=== PATIENT | female | born 1995 | race African-American/Black ===

== ENCOUNTER 2017-01-20 08:54 | Emergency (ER) | payer OTHER ==
[2017-01-20 09:15] VITALS: BP 120/77
[2017-01-20 09:16] LABS: BILIRUBIN,URINE SMALL (NEG); GLUCOSE,URINE NEGATIVE (NEG); NITRITE,URINE NEGATIVE (NEG); PH,URINE 5.5; PROTEIN,URINE NEGATIVE (NEG-TRACE); UROBILINOGEN,URINE 0.2 mg/dL (0.2 mg/dL)
[2017-01-20 09:45] LABS: BACTERIA,URINE 0 /HPF (0-FEW); RBC,URINE 0 /HPF (0-2); SQUAMOUS EPITHELIAL CELL,UR OCC /LPF; WBC,URINE OCC /HPF (0-4)
--- NOTE | 2017-01-20 10:25 | ED.ADGEN ---
Past Medical History Past Medical History: No Pertinent History Past Surgical History: No Surgical History Alcohol Use: None Drug Use: None Adult General Chief Complaint Chief Complaint: ABDOMINAL PAIN HPI HPI Patient is a 21 year old woman, who presents to the emergency department with a complaint of intermittent abdominal pain over the past several weeks. Patient describes it as a sharp stabbing sensation in her lower and middle abdomen, which comes and goes. Denies any nausea or vomiting, any diarrhea, any fevers or chills, any urinary complaints, any discharge or drainage of the vagina. Patient states that she stop getting her double injections about 2 years ago, and that her last menstrual period was about 2 months ago. She is concerned to be stay in the emergency department. She denies any concerns for STI exposures, any injuries, any rashes, any recent travel or surgery, any swelling extremities, or any other complaints. She has not taken any medication prior to coming to the ED. She states she is not currently experiencing any abdominal pain. Review of Systems Review of Systems Constitutional: Denies fever or chills. [] Eyes: Denies change in visual acuity. [] HENT: Denies nasal congestion or sore throat. [] Respiratory: Denies cough or shortness of breath. [] Cardiovascular: Denies chest pain or edema. [] GI: Intermittent abdominal pain, no nausea, vomiting, bloody stools or diarrhea. : Denies dysuria. [] Musculoskeletal: Denies back pain or joint pain. [] Integument: Denies rash. [] Neurologic: Denies headache, focal weakness or sensory changes. [] Endocrine: Denies polyuria or polydipsia. [] Lymphatic: Denies swollen glands. [] Psychiatric: Denies depression or anxiety. [] Allergies Allergies Allergies Coded Allergies Type Severity Reaction Last Updated Verified No Known Drug Allergies 03/04/14 No Physical Exam Physical Exam Constitutional: Well developed, well nourished, no acute distress, non-toxic appearance. [] HENT: Normocephalic, atraumatic, bilateral external ears normal, oropharynx moist, no oral exudates, nose normal. [] Eyes: PERRLA, EOMI, conjunctiva normal, no discharge. [] Neck: Normal range of motion, no tenderness, supple, no stridor. [] Cardiovascular:Heart rate regular rhythm, no murmur, S1, S2, no rubs or gallops. [] Lungs & Thorax: Bilateral breath sounds clear to auscultation, no wheezing, rhonchi, rales. No chest or crepitus or tenderness. [] Abdomen: Bowel sounds normal, soft, no tenderness, no rebound, rigidity, no guarding, no masses, no pulsatile masses. [] Skin: Warm, dry, no erythema, no rash. [] Back: No tenderness, no CVA tenderness. [] Extremities: No tenderness, no cyanosis, no clubbing, ROM intact, no edema. [] Neurologic: Alert and oriented X 3, normal motor function, normal sensory function, no focal deficits noted. [] Psychologic: Affect normal, judgement normal, mood normal. [] Current Patient Data Vital Signs Vital Signs Date Time Temp Pulse Resp B/P (MAP) Pulse Ox O2 Delivery O2 Flow Rate FiO2 01/20/17 09:15 98.5 99 16 120/77 (91) 99 Room Air 98.5 Lab Values Laboratory Tests Test 01/20/17 09:07 Urine Collection Type Void Urine Color Liudmila Urine Clarity Clear Urine pH 5.5 Urine Specific [place] >=1.030 Urine Protein Negative mg/dL (NEG-TRACE) Urine Glucose (UA) Negative mg/dL (NEG) Urine Ketones (Stick) Negative mg/dL (NEG) Urine Blood Negative (NEG) Urine Nitrite Negative (NEG) Urine Bilirubin Small (NEG) Urine Urobilinogen Dipstick 0.2 mg/dL (0.2 mg/dL) Urine Leukocyte Esterase Negative (NEG) Urine RBC 0 /HPF (0-2) Urine WBC Occ /HPF (0-4) Urine Squamous Epithelial Cells Occ /LPF Urine Bacteria 0 /HPF (0-FEW) Urine Mucus Marked /LPF EKG EKG [] Interpretation Time: Not indicated. Radiology/Procedures Radiology/Procedures Not indicated. [] Course & Med Decision Making Course & Med Decision Making Pertinent Labs and Imaging studies reviewed. (See chart for details) Patient's hCG urine test is negative and the emergency department. Urinalysis is also unremarkable. I did discuss this with patient, she is relieved with these findings. As stated she's not experiencing abdominal pain at this time. She denies any concerns for STI exposures or any other complaints. As she has not followed up with an [facility] for some time, I did discuss obtaining a pelvic exam in the ED at this time, however she states that she has seen Dr. Franco of [facility] previously, and would prefer to follow-up with him for a full examination. Importance of following up promptly for evaluation discussed, especially as patient is currently off any control methods. Importance of establishing a qualified and protected control method discussed. Patient voices understanding with importance of plan for follow-up, and concerning symptoms that prompt return the emergency department for additional evaluation. Contact information for Dr. Franco given with discharge paperwork. Patient discharged home in stable condition with plan as above. Dragon Disclaimer Dragon Disclaimer This electronic medical record was generated, in whole or in part, using a voice recognition dictation system. Departure Impression: Primary Impression: Abdominal pain Disposition: 01 HOME, SELF-CARE Condition: IMPROVED MILAD[facility] LOVE DO Jan 20, 2017 10:25
== END 2017-01-20 10:15 | disposition home or self-care (01) ==
LOC: ER 08:54
DX: R10.30 Lower abdominal pain, unspecified (principal)
CPT/HCPCS: 81001; 81025; 99283

== ENCOUNTER 2017-04-18 14:47 | Emergency (ER) | payer OTHER ==
[~2017-04-18] VITALS: Ht 154.9 cm; Wt 51.3 kg
[2017-04-18 15:14] VITALS: BP 115/59
[2017-04-18] MEDS ORDERED: IBUP-1060 PO (15:34)
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
== END 2017-04-18 15:50 | disposition home or self-care (01) ==
LOC: ER 14:47
DX: S60.221A Contusion of right hand, initial encounter (principal); W22.8XXA Striking against or struck by other objects, initial encounter; Y93.89 Activity, other specified; Y92.89 Other specified places as the place of occurrence of the external cause; Y99.8 Other external cause status
CPT/HCPCS: 73130; 99284

== ENCOUNTER 2017-05-13 09:41 | Emergency (ER) | payer OTHER ==
[~2017-05-13] VITALS: Ht 154.9 cm; Wt 49.0 kg
[~2017-05-13 09:41] MED LIST: IBUP-1060 PO
[2017-05-13 09:50] VITALS: BP 119/63
[2017-05-13] MEDS ORDERED: DIPHTH,PERTUSS(ACELL),TET TOX 0.5 ML DISP.SYRIN. VAX IM ONE (10:30)
[2017-05-13] MEDS ORDERED: CLINDAMYCIN HCL 150 MG CAPSULE. PO ONE (10:30)
[2017-05-13] MEDS ORDERED: MUPIROCIN 2 % NASAL OINTMENT 22GM TUBE. NS ONE (10:30)
[2017-05-13] MEDS ORDERED: CLIN150C14 PO (10:31)
--- NOTE | 2017-05-13 10:31 | PHYS DOC ---
Past Medical History Past Medical History: No Pertinent History Past Surgical History: No Surgical History Alcohol Use: None Drug Use: None Adult General Chief Complaint Chief Complaint: INSECT BITE HPI HPI Patient is a 21 year old female with no significant medical history who presents with a spider bite to the left lower extremity that she noted 4 days ago. Patient states she was seen by the PCP 4 days ago and was started on amoxicillin and tramadol. Patient states the pain was still present. She states she followed up with the PCP 2 days later and was given more amoxicillin and hydrocodone. Patient stated this is not helping with her pain. She states the redness on the affected leg is improving but has not cleared out. Patient denies any fever. Denies any nausea vomiting. Review of Systems Review of Systems Constitutional: Denies fever or chills [] GI: Denies abdominal pain, nausea, vomiting, bloody stools or diarrhea [] Musculoskeletal: Denies back pain or joint pain [] Integument: spider bite to the left lower extremity Neurologic: Denies headache, focal weakness or sensory changes [] Current Medications Current Medications Current Medications Medications (Trade) Dose Ordered Sig/Venita Start Time Stop Time Status Last Admin Dose Admin Clindamycin HCl (Cleocin) 450 mg 1X ONCE 05/13/17 10:30 05/13/17 10:31 Diphtheria/ Tetanus/Acell Pertussis (Boostrix) 0.5 ml ONCE ONCE 05/13/17 10:30 05/13/17 10:31 UNV Mupirocin (Bactroban) 1 jennifer 1X ONCE 05/13/17 10:30 05/13/17 10:31 Allergies Allergies Allergies Coded Allergies Type Severity Reaction Last Updated Verified No Known Drug Allergies 03/04/14 No Physical Exam Physical Exam Constitutional: Well developed, well nourished, no acute distress, non-toxic appearance. [] Skin: left calf with an open with 0.5 x 0.5 cm with surrounding mild cellulitis with streaking into the left medial thigh. There is slight warmth to the area. No drainage. Patient states this streaking and redness has improved. Back: No tenderness, no CVA tenderness. [] Extremities: No tenderness, no cyanosis, no clubbing, ROM intact, no edema. [] Neurologic: Alert and oriented X 3, normal motor function, normal sensory function, no focal deficits noted. [] Psychologic: Affect normal, judgement normal, mood normal. [] Current Patient Data Vital Signs Vital Signs Date Time Temp Pulse Resp B/P (MAP) Pulse Ox O2 Delivery O2 Flow Rate FiO2 05/13/17 09:50 98.3 61 18 98 Room Air 98.3 EKG EKG [] Radiology/Procedures Radiology/Procedures [] Course & Med Decision Making Course & Med Decision Making Pertinent Labs and Imaging studies reviewed. (See chart for details) Patient has an abscess and cellulitis with streaking into the left medial thigh. She is currently taking amoxicillin with slight improvement. Informed patient she needs to be admitted considering the streaking has gone into the left medial thigh. Informed patient admission will require IV antibiotics. Patient refused. She states she cannot stand needles. Informed her she'll be discharged on clindamycin and Bactroban cream which we provided in the ED. Informed her she can continue taking hydrocodone or tramadol or ibuprofen as needed for pain. She has a PCP recommended she needs to follows up in the course of this week. Instructed patient to return to the ED symptoms worsen. Patient was given Boostrix in the ED. Dragon Disclaimer Dragon Disclaimer This electronic medical record was generated, in whole or in part, using a voice recognition dictation system. Departure Departure Impression: Primary Impression: Cellulitis and abscess of left lower extremity Disposition: 01 HOME, SELF-CARE Condition: STABLE Referrals: FADIA VICTOR MD (PCP) follow up with your doctor in the course of this week Patient Instructions: Abscess, Cellulitis Additional Instructions: You were seen with an abscess and cellulitis of the left lower extremity. Keep the area clean and dry. Take the oral antibiotics you got today until completed , stop taking the amoxicillin. Apply the cream provided to the affected area 3 times a day. Continue taking tramadol or ibuprofen or hydrocodone as needed for pain. Come back to the emergency room if symptoms worsen Scripts Clindamycin Hcl (CLINDAMYCIN HCL) 150 Mg Capsule 3 CAP PO TID, #90 CAP Prov: MARYANN KOHLI APRN 05/13/17 MARYANN KOHLI APRN May 13, 2017 10:31
== END 2017-05-13 10:54 | disposition home or self-care (01) ==
LOC: ER 09:41
DX: L03.116 Cellulitis of left lower limb (principal); L02.416 Cutaneous abscess of left lower limb
CPT/HCPCS: 90471; 90715; 99283-25

== ENCOUNTER 2017-07-25 14:59 | Emergency (ER) | payer OTHER ==
[~2017-07-25] VITALS: Ht 154.9 cm; Wt 52.2 kg
[~2017-07-25 14:59] MED LIST changes: +CLIN150C14 PO
--- NOTE | 2017-07-25 15:21 | PHYS DOC ---
Past Medical History Past Medical History: No Pertinent History Past Surgical History: No Surgical History Alcohol Use: None Drug Use: None Adult General Chief Complaint Chief Complaint: SORE THROAT HPI HPI Patient is a 21 year old female presents the ED complaining of sore throat 3 days. States it's painful to swallow. Describes pain as sharp. Rates the pain as 7 out of 10. Associated symptoms include subjective fever and lymph node swelling. Denies cough, flulike symptoms, chest pain, shortness of breath, nausea/vomiting, abdominal pain, dysuria, back pain or weakness. Review of Systems Review of Systems Constitutional: Denies fever or chills [] Eyes: Denies change in visual acuity, redness, or eye pain [] HENT: Complains of sore throat. Denies nasal congestion. [] Respiratory: Denies cough or shortness of breath [] Cardiovascular: No additional information not addressed in HPI [] GI: Denies abdominal pain, nausea, vomiting, bloody stools or diarrhea [] : Denies dysuria or hematuria [] Musculoskeletal: Denies back pain or joint pain [] Integument: Denies rash or skin lesions [] Neurologic: Denies headache, focal weakness or sensory changes [] Endocrine: Denies polyuria or polydipsia [] All other systems were reviewed and found to be within normal limits, except as documented in this note. Current Medications Current Medications Current Medications Medications (Trade) Dose Ordered Sig/Venita Start Time Stop Time Status Last Admin Dose Admin Ibuprofen (Motrin) 800 mg 1X ONCE 07/25/17 15:45 07/25/17 15:46 DC 07/25/17 15:48 800 MG Allergies Allergies Allergies Coded Allergies Type Severity Reaction Last Updated Verified No Known Drug Allergies 03/04/14 No Physical Exam Physical Exam Constitutional: Well developed, well nourished, no acute distress, non-toxic appearance. [] HENT: Normocephalic, atraumatic, bilateral external ears normal, MILD PHARYNGEAL ERYTHEMA. UVULA MIDLINE. 2+ ANTERIOR CERVICAL AND SUBMENTAL LYMPHADENOPATHY. oropharynx moist, no oral exudates, nose normal. [] Eyes: PERRLA, EOMI, conjunctiva normal, no discharge. [] Neck: Normal range of motion, no tenderness, supple, no stridor. [] Cardiovascular:Heart rate regular rhythm, no murmur [] Lungs & Thorax: Bilateral breath sounds clear to auscultation [] Skin: Warm, dry, no erythema, no rash. [] Neurologic: Alert and oriented X 3, normal motor function, normal sensory function, no focal deficits noted. [] Psychologic: Affect normal, judgement normal, mood normal. [] Current Patient Data Vital Signs Vital Signs Date Time Temp Pulse Resp B/P (MAP) Pulse Ox O2 Delivery O2 Flow Rate FiO2 07/25/17 15:30 98.0 75 18 111/72 (85) 100 Room Air 98.0 Lab Values Laboratory Tests Test 07/25/17 15:20 Group A Streptococcus Rapid Negative (NEGATIVE) EKG EKG [] Radiology/Procedures Radiology/Procedures [] Course & Med Decision Making Course & Med Decision Making Pertinent Labs and Imaging studies reviewed. (See chart for details) []Will treat with augmentin and a medrol dosepak. Discussed symptomatic treatment. Discussed follow-up for re-evaluation in 3-5 days. Discussed reasons to return to the ED sooner. Patient understands and agrees with plan. Dragon Disclaimer Dragon Disclaimer This electronic medical record was generated, in whole or in part, using a voice recognition dictation system. Departure Departure Impression: Primary Impression: Pharyngitis Disposition: 01 HOME, SELF-CARE Condition: STABLE Referrals: FADIA VICTOR MD (PCP) Patient Instructions: Viral and Bacterial Pharyngitis Scripts Methylprednisolone (MEDROL) 4 Mg Tab.ds.pk 1 PKG PO UD, #1 PKG Prov: CHRISTELLE ANDRADE 07/25/17 Amoxicillin/Potassium Clav (AUGMENTIN 875-125 TABLET) 1 Each Tablet 1 TAB PO BID, #20 TAB Prov: CHRISTELLE ANDRADE 07/25/17 CHRISTELLE ANDRADE Jul 25, 2017 15:21
[2017-07-25 15:30] VITALS: BP 111/72
[2017-07-25] MEDS ORDERED: AMOX1TAB61 PO (15:39)
[2017-07-25] MEDS ORDERED: METH4TAB2 PO (15:39)
[2017-07-25] MEDS ORDERED: IBUPROFEN 800 MG TABLET. PO ONE (15:45)
[2017-07-26 07:45] LABS: NEGATIVE OBC STREP NEG; POSITIVE OBC STREP POS
== END 2017-07-25 15:50 | disposition home or self-care (01) ==
LOC: ER 14:59
DX: J02.9 Acute pharyngitis, unspecified (principal); R50.9 Fever, unspecified; R59.9 Enlarged lymph nodes, unspecified
CPT/HCPCS: 87070; 87880; 99283

== ENCOUNTER 2017-09-02 17:21 | Emergency (ER) | payer OTHER ==
[2017-09-03 08:28] LABS: NEGATIVE OBC STREP NEG; POSITIVE OBC STREP POS
== END 2017-09-02 18:29 | disposition home or self-care (01) ==
LOC: ER 17:21
DX: J02.8 Acute pharyngitis due to other specified organisms (principal); B97.89 Other viral agents as the cause of diseases classified elsewhere; R51 Headache
CPT/HCPCS: 87070; 87880; 99284

== ENCOUNTER 2017-10-13 15:32 | Emergency (ER) | payer OTHER ==
[2017-10-13 16:04] LABS: URINE HCG POC HCG NEGATIVE (Negative)
[2017-10-13] MEDS: LIDOCAINE/EPI/TETRACAINE TOPICAL GEL 3 ML. TP ×2 (16:30)
[2017-10-13] MEDS: ACETAMINOPHEN/CODEINE 300/30MG TABLET. PO ×2 (17:35)
== END 2017-10-13 17:48 | disposition home or self-care (01) ==
LOC: ER 15:32
DX: S01.01XA Laceration without foreign body of scalp, initial encounter (principal); W22.8XXA Striking against or struck by other objects, initial encounter; Y93.89 Activity, other specified; Y92.89 Other specified places as the place of occurrence of the external cause; Y99.8 Other external cause status
CPT/HCPCS: 12001; 70450; 72125; 81025; 99284-25

== ENCOUNTER 2018-09-30 23:15 | Emergency (ER) | payer OTHER ==
[2017-10-13 15:50] VITALS: BP 116/77
[~2018-09-30 23:15] MED LIST changes: +AMOX1TAB61 PO; +IBUP-1007 PO; +METH4TAB2 PO; +OSEL75CA PO
[2018-09-30] MEDS ORDERED: DIPHTH,PERTUSS(ACELL),TET TOX 0.5 ML DISP.SYRIN. VAX IM ONE ×3 (23:20→23:43)
[2018-09-30] MEDS ORDERED: KETOROLAC 15 MG/ML VIAL. IV ONE (23:20)
[2018-09-30] MEDS ORDERED: KETOROLAC 15 MG/ML VIAL. ONE (23:43)
[2018-10-01] MEDS ORDERED: traMADol 50 MG TABLET ONE (00:49)
[2018-10-01 06:26] LABS: ALBUMIN 4.3 g/dL (3.4-5.0); CALCIUM 9.3 mg/dL (8.5-10.1); CREATININE 1.3 mg/dL (0.6-1.0); DIRECT BILIRUBIN 0.1 mg/dL (0.0-0.2); POTASSIUM 3.4 mmol/L (3.5-5.1); TOTAL BILIRUBIN 0.4 mg/dL (0.2-1.0)
[2018-10-01 06:35] LABS: BASO # 0.1 x10^3/uL (0.0-0.2); BASO % 1 % (0-3); EOS # 0.1 x10^3/uL (0.0-0.7); EOS % 1 % (0-3); HEMATOCRIT 39.8 % (36.0-47.0); HEMOGLOBIN 13.1 g/dL (12.0-15.5); LYMPH # 3.6 x10^3/uL (1.0-4.8); LYMPH % 36 % (24-48); MEAN CORPUSCULAR HEMOGLOBIN 31 pg (25-35); MEAN CORPUSCULAR HGB CONC 33 g/dL (31-37); MEAN CORPUSCULAR VOLUME 94 fL (79-100); MONO # 0.9 x10^3/uL (0.0-1.1); MONO % 9 % (0-9); NEUT # 5.5 x10^3uL (1.8-7.7); NEUT % 54 % (31-73); PLATELET COUNT 226 x10^3/uL (140-400); RED BLOOD COUNT 4.26 x10^6/uL (3.50-5.40); RED CELL DISTRIBUTION WIDTH 13.2 % (11.5-14.5); WHITE BLOOD COUNT 10.2 x10^3/uL (4.0-11.0)
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
== END 2018-10-01 00:45 | disposition home or self-care (01) ==
LOC: ER 23:15
DX: S81.011A Laceration without foreign body, right knee, initial encounter (principal); X95.01XA Assault by airgun discharge, initial encounter; Y93.89 Activity, other specified; Y92.098 Other place in other non-institutional residence as the place of occurrence of the external cause; Y99.8 Other external cause status
CPT/HCPCS: 36415; 71045; 72170; 73562; 80048; 80076; 83605; 85025; 85610; 85730; 90471; 90715; 96365; 96375; 99285; J0690; J1885

== ENCOUNTER → 2018-10-08 | Outpatient (CLI) | payer OTHER ==
[2017-10-13 15:50] VITALS: BP 116/77
== END | disposition home or self-care (01) ==
LOC: PMGWOUND 07:50
PROVIDERS: ATTEND Emergency Medicine Undersea and Hyperbaric Medicine
DX: L97.112 Non-pressure chronic ulcer of right thigh with fat layer exposed (principal)
CPT/HCPCS: 97597; G0463

== ENCOUNTER → 2018-10-15 | Outpatient (CLI) | payer OTHER ==
[2017-10-13 15:50] VITALS: BP 116/77
== END | disposition home or self-care (01) ==
LOC: PMGWOUND 08:09
PROVIDERS: ATTEND Emergency Medicine Undersea and Hyperbaric Medicine
DX: L97.112 Non-pressure chronic ulcer of right thigh with fat layer exposed (principal)
CPT/HCPCS: 97597

== ENCOUNTER → 2018-10-22 | Outpatient (CLI) | payer OTHER ==
[2017-10-13 15:50] VITALS: BP 116/77
== END | disposition home or self-care (01) ==
LOC: PMGWOUND 07:49
PROVIDERS: ATTEND Emergency Medicine Undersea and Hyperbaric Medicine
DX: L97.112 Non-pressure chronic ulcer of right thigh with fat layer exposed (principal)
CPT/HCPCS: 97597

== ENCOUNTER → 2018-10-29 | Outpatient (CLI) | payer OTHER ==
[2017-10-13 15:50] VITALS: BP 116/77
== END | disposition home or self-care (01) ==
LOC: PMGWOUND 08:09
PROVIDERS: ATTEND Emergency Medicine Undersea and Hyperbaric Medicine
DX: L97.812 Non-pressure chronic ulcer of other part of right lower leg with fat layer exposed (principal); L97.112 Non-pressure chronic ulcer of right thigh with fat layer exposed
CPT/HCPCS: 97597

== ENCOUNTER → 2018-11-12 | Outpatient (CLI) | payer OTHER ==
[2017-10-13 15:50] VITALS: BP 116/77
== END | disposition home or self-care (01) ==
LOC: PMGWOUND 10:08
PROVIDERS: ATTEND Emergency Medicine Undersea and Hyperbaric Medicine
DX: L98.492 Non-pressure chronic ulcer of skin of other sites with fat layer exposed (principal); L97.112 Non-pressure chronic ulcer of right thigh with fat layer exposed
CPT/HCPCS: 99213; G0463